=== PATIENT | female | born 1985 | race Caucasian/White ===

== ENCOUNTER 2023-10-19 20:07 | Emergency (ER) | payer OTHER ==
[2023-10-19 20:31] VITALS: BP 121/83; PULSE 68; RESP 18; TEMP 98.4; BMI 19.8
== END 2023-10-19 21:27 | disposition home or self-care (01) ==
LOC: FER 20:07
DX: S93.602A Unspecified sprain of left foot, initial encounter (principal); S93.402A Sprain of unspecified ligament of left ankle, initial encounter; W19.XXXA Unspecified fall, initial encounter
CPT/HCPCS: 73610-TC-LT-FY; 73630-TC-LT; 99283-25